=== PATIENT | female | born 1970 | race Caucasian/White ===

== ENCOUNTER 2018-02-02 16:12 | Emergency (ER) | payer OTHER ==
[2018-02-02] MEDS: HYDROCODONE/APAP (5/325) TAB PO (18:36)
[2018-02-02] MEDS: IBUPROFEN 200 MG TAB PO (18:36)
== END 2018-02-02 18:57 | disposition home or self-care (01) ==
LOC: FTE 16:12
DX: J03.90 Acute tonsillitis, unspecified (principal); I10 Essential (primary) hypertension
CPT/HCPCS: 99284; Z7502

== ENCOUNTER 2018-04-07 16:26 | Emergency (ER) | payer OTHER ==
[2018-04-07] MEDS: HYDROCODONE/APAP (5/325) TAB PO (18:56)
== END 2018-04-07 19:44 | disposition home or self-care (01) ==
LOC: FTE 16:26
DX: H61.21 Impacted cerumen, right ear (principal); I10 Essential (primary) hypertension
CPT/HCPCS: 69209; 99283-25

== ENCOUNTER 2018-05-09 08:37 | Emergency (ER) | payer OTHER | END 2018-05-09 10:40 | disposition home or self-care (01) | LOC: FTE 08:37 | DX: K08.89 Other specified disorders of teeth and supporting structures (principal); I10 Essential (primary) hypertension | CPT/HCPCS: 99283; Z7502 ==

== ENCOUNTER 2018-09-03 12:52 | Emergency (ER) | payer OTHER ==
[2018-09-03] MEDS: KETOROLAC 60 MG INJ IM (15:03)
== END 2018-09-03 15:07 | disposition home or self-care (01) ==
LOC: FTE 12:52
DX: J32.9 Chronic sinusitis, unspecified (principal); I10 Essential (primary) hypertension; Z87.891 Personal history of nicotine dependence
CPT/HCPCS: 81025; 99283